=== PATIENT | female | born 1990 | race Caucasian/White ===

== ENCOUNTER 2019-10-02 08:14 | Emergency (ER) | payer OTHER ==
[~2019-10-02] VITALS: Ht 170.2 cm; Wt 63.5 kg
--- NOTE | 2019-10-02 08:28 | NUR ---
pt ambulating with steady gait. A&O x4. c/o syncope today approx around 7 per pt. pt felt nauseated and "out of it" while at the supermarket and started to "pass out" per pt. pt did not hit head as someone caught her. pt does not recall how long she "passed out" for but stated "it wasnt a long time". speech is clear and able to make needs known / follow commands. Breathing even and unlabored. No SOB noted. denies any distress. family at bedside at this time
--- NOTE | 2019-10-02 08:40 | NUR ---
ERMD at bedside for MSE
[2019-10-02] MEDS ORDERED: IV NORMAL SALINE 1000 ML BAG IV ONE ×2 (08:45→10:45)
[2019-10-02 08:58] LABS: *BILIRUBIN,URIN NEGATIVE (NEGATIVE); *BLOOD, URINE NEGATIVE (NEGATIVE); *CLARITY,URINE CLOUDY (CLEAR); *COLOR,URINE YELLOW (YELLOW); *KETONES,URINE NEGATIVE (NEGATIVE); *UROBILINOGEN,URINE 0.2 E.U./dl (NORMAL); LEUKOCYTE ESTERASE ,URINE NEGATIVE (NEGATIVE); NITRITE, URINE NEGATIVE (NEGATIVE); PH,URINE 8.5 (5.0-8.0); UGLUCOSE NEGATIVE (NEGATIVE)
[2019-10-02 09:10] LABS: BACTERIA,URINE MODERATE /HPF (NONE SEEN); RBC,URINE 0-3 /HPF (0-3)
[2019-10-02 09:11] LABS: *URINE HCG, QUAL NEGATIVE (NEGATIVE); SQUAMOUS EPITHELIAL CELL,UR MANY /HPF (NONE SEEN); URINE AMORPHOUS PHOSPHATES FEW /HPF
[2019-10-02 09:14] LABS: BASOPHILS # (AUTO) 0.1 K/uL (0.0-8.0); BASOPHILS % (AUTO) 0.6 % (0.0-2.0); EOSINOPHILS # (AUTO) 0.1 K/uL (0.0-0.7); EOSINOPHILS % (AUTO) 0.8 % (0.0-7.0); HEMATOCRIT 44.1 % (31.2-41.9); HEMOGLOBIN 14.7 g/dL (10.9-14.3); LYMPHOCYTES # (AUTO) 1.3 K/uL (20.0-40.0); LYMPHOCYTES % (AUTO) 15.1 % (20.5-51.5); MEAN CORPUSCULAR HEMOGLOBIN 30.1 uug (24.7-32.8); MEAN CORPUSCULAR HGB CONC 33 g/dL (32.3-35.6); MEAN CORPUSCULAR VOLUME 90.2 fL (75.5-95.3); MONOCYTES # (AUTO) 0.5 K/uL (2.0-10.0); MONOCYTES % (AUTO) 5.9 % (0.0-11.0); NEUTROPHILS # (AUTO) 6.5 K/uL (1.8-8.9); NEUTROPHILS % (AUTO) 77.6 % (38.5-71.5); PLATELET COUNT (AUTO) 181 K/uL (179-408); RED BLOOD CELL COUNT(AUTO) 4.89 MIL/uL (3.63-4.92); WHITE BLOOD COUNT (AUTO) 8.4 K/uL (3.8-11.8)
[2019-10-02 09:17] LABS: CREATININE 0.8 mg/dL (0.6-1.3); POTASSIUM 4.4 mmol/L (3.5-5.1)
[2019-10-02 09:23] LABS: BILIRUBIN,DIRECT 0.2 mg/dL (0.0-0.2); BILIRUBIN,TOTAL 0.8 mg/dL (0.2-1.0); TOTAL PROTEIN, SERUM 7.7 g/dL (6.4-8.2)
[2019-10-02] MEDS ORDERED: ONDANSETRON 4 MG/2 ML VIAL IV ONE (10:00)
[2019-10-02] MEDS ORDERED: KETOROLAC TROMETHAMINE 30 MG INJ IVP ONE (10:00)
[2019-10-02] MEDS ORDERED: KETOROLAC TROMETHAMINE 30 MG INJ ONE (10:05)
[2019-10-02] MEDS ORDERED: ONDANSETRON 4 MG/2 ML VIAL ONE (10:05)
--- NOTE | 2019-10-02 10:45 | NUR ---
pt in bed watching TV, family at bedside. Breathing even and unlaored. NAD noted
--- NOTE | 2019-10-02 11:30 | NUR ---
Patient discharged to home in stable conditon. Written and verbal after care instructions given. Patient verbalizes understanding of instructions. pt ambulating with steady gait. IV removed. Catheter intact and site benign. Pressure and 4x4 gauze applied to site. No bleeding noted.
[2019-10-02 11:33] VITALS: BP 97/62
== END 2019-10-02 11:30 | disposition home or self-care (01) ==
LOC: ER 08:14
DX: R10.30 Lower abdominal pain, unspecified (principal); R55 Syncope and collapse; R11.0 Nausea
CPT/HCPCS: 36415; 80048; 80076; 81000; 81001; 84703; 85025; 87086; 93005; 96361; 96374; 96375; 99284; J1885; J2405; A4663; J7030